=== PATIENT | female | born 1960 | race Hispanic/Latino ===

== ENCOUNTER 2017-11-06 18:38 | Emergency (ER) | payer OTHER ==
[~2017-11-06] VITALS: Ht 154.9 cm; Wt 74.8 kg
[2017-11-06] MEDS ORDERED: SODIUM CHLORIDE 0.9% 1000ML 1,000 ML IV STA (19:10)
[2017-11-06 19:42] LABS: BASOPHILS # (AUTO) 0.1 (0.0-0.1); BASOPHILS % 0.6 % (0.0-1.0); EOSINOPHILS # (AUTO) 0.1 (0.0-0.4); EOSINOPHILS % 0.8 % (0.0-6.0); HEMATOCRIT 42.8 % (34.2-44.1); HEMOGLOBIN 14.5 g/dL (12.0-16.0); LYMPHOCYTES # (AUTO) 7.3 (1.0-3.2); LYMPHOCYTES % 46.3 % (18.0-39.1); MEAN CORPUSCULAR HEMOGLOBIN 30.5 pg (28-32); MEAN CORPUSCULAR HGB CONC 33.9 g/dL (31-35); MEAN CORPUSCULAR VOLUME 90.1 fL (81-99); MONOCYTES # (AUTO) 1.1 (0.2-0.8); MONOCYTES % 6.6 % (4.4-11.3); NEUTROPHILS # (AUTO) 7.2 (2.1-6.9); NEUTROPHILS % 45.4 % (38.7-80.0); PLATELET COUNT 332 x10e3/uL (140-360); RED BLOOD COUNT 4.75 x10e6/uL (3.6-5.1); RED CELL DISTRIBUTION WIDTH 12.8 % (11.7-14.4)
[2017-11-06] MEDS ORDERED: GLIPIZIDE-METF1 EAC2 PO (19:42)
[2017-11-06] MEDS ORDERED: LISINOPRIL2.5 MG PO (19:43)
[2017-11-06] MEDS ORDERED: VITAMIN D1000 UNI1 PO (19:45)
[2017-11-06 19:51] LABS: INR 1.09; PARTIAL THROMBOPLASTIN TIME 27.4 seconds (23.8-35.5); PROTHROMBIN TIME 13.3 seconds (11.9-14.5)
[2017-11-06 19:55] LABS: BILIRUBIN,URINE 2+ (NEGATIVE); CLARITY,URINE SL CLOUDY (CLEAR); COLOR,URINE RED (YELLOW); KETONES,URINE NEGATIVE (NEGATIVE); LEUKOCYTE ESTERASE ,URINE TRACE (NEGATIVE); NITRITE,URINE NEGATIVE (NEGATIVE); PROTEIN,URINE DIPSTICK 1+ (NEGATIVE); URINE UROBILINOGEN 0.2 mg/dL (0.2 - 1)
[2017-11-06 20:00] LABS: ALANINE AMINOTRANSFERASE 67 IU/L (0-55); ALBUMIN 4.5 g/dL (3.5-5.0); ALBUMIN/GLOBULIN RATIO 1.2 (0.8-2.0); ALKALINE PHOSPHATASE 128 IU/L (40-150); ANION GAP 17.7 mmol/L (8-16); BLOOD UREA NITROGEN 12 mg/dL (7-26); BUN/CREATININE RATIO 14 (6-25); CALCIUM 10.1 mg/dL (8.4-10.2); CARBON DIOXIDE 22 mmol/L (22-29); CHLORIDE 105 mmol/L (98-107); CREATININE, SERUM 0.86 mg/dL (0.57-1.11); EST GLOMERULAR FILTRATION RATE > 60 ML/MIN (60-); GLUCOSE 172 mg/dL (74-118); POTASSIUM 3.7 mmol/L (3.5-5.1); SODIUM 141 mmol/L (136-145)
[2017-11-06 20:07] LABS: BACTERIA,URINE FEW /HPF; RBC,URINE >50 /HPF (0-5)
[2017-11-06 20:37] LABS: LYMPHOCYTES % (MANUAL) 38 % (19-48); MONOCYTES % (MANUAL) 6 % (3.4-9.0); NEUTROPHILS % (MANUAL) 52 % (40-74); PLATELET ESTIMATE ADEQUATE; PLATELET MORPHOLOGY COMMENT NORMAL; RBC MORPHOLOGY COMMENT NORMAL
[2017-11-06] MEDS ORDERED: SODIUM CHLORIDE 0.9% 1000ML 1,000 ML IV SCH (21:15)
--- NOTE | 2017-11-06 21:18 | Diagnostic Imaging Report ---
EXAM: Transvaginal ultrasound INDICATION: Abnormal vaginal bleeding. H/O of LEAP procedure 06/2017 with subsequent cauterization COMPARISON: None TECHNIQUE: Transverse and sagittal transvaginal barrera-scale and color doppler sonographic images of the pelvis were obtained. Transvaginal imaging was medically necessary to better evaluate the endometrium. CLINICAL HISTORY: 56 year old A0 Last menstrual period: 2011 FINDINGS: UTERUS: 5.9 x 3.6 x 4.9 cm, anteverted Heterogeneous external cervix with focal area of active bleeding. Hyperechoic fluid within the endocervical canal. Nonspecific 1.1 cm hyperechoic area in the posterior uterine body, possibly a partially calcified fibroid. ENDOMETRIUM: 0.2 cm Homogeneous echotexture without focal thickening. RIGHT OVARY: 2.5 x 1.7 x 1.5 cm, Normal color flow. No abnormal right ovarian cyst or mass. LEFT OVARY: 2.2 x 1.7 x 1.5 cm, Normal color flow. No abnormal left ovarian cyst or mass. No adnexal masses. No free fluid in the cul-de-sac. IMPRESSION: Heterogeneous cervix with focal area of active bleeding arising from the external cervix with blood seen in the endocervical canal. Direct visual inspection is recommended. Nonspecific 1.1 cm hyperechoic area in the posterior uterine body, possibly partially calcified fibroid. Otherwise, normal appearance of the intrauterine endometrium and ovaries. Signed by: Dr. Bre Rapp M.D. on 11/06/2017 9:14 PM
--- NOTE | 2017-11-06 21:57 | Diagnostic Imaging Report ---
EXAM: CHEST SINGLE (PORTABLE), AP 1 view INDICATION: Shortness of breath, vaginal bleeding COMPARISON: None FINDINGS: LINES/TUBES: None LUNGS: No consolidations or edema. PLEURA: No effusions or pneumothorax. HEART AND MEDIASTINUM: Normal size and contour. BONES AND SOFT TISSUES: No acute findings. IMPRESSION: No acute thoracic abnormality. Signed by: Dr. Bre Rapp M.D. on 11/06/2017 9:53 PM
[2017-11-06] MEDS ORDERED: SODIUM CHLORIDE 0.9% 1000ML 1,000 ML IV ONE (22:17)
[2017-11-06 23:25] VITALS: BP 127/79
== END 2017-11-06 23:34 | disposition other institution (70) ==
LOC: ER 18:38
DX: N93.9 Abnormal uterine and vaginal bleeding, unspecified (principal); R00.0 Tachycardia, unspecified; I10 Essential (primary) hypertension; E11.9 Type 2 diabetes mellitus without complications; K76.0 Fatty (change of) liver, not elsewhere classified
CPT/HCPCS: 36415; 71045; 76830; 80053; 81001; 84702; 85025; 85610; 85730; 86850; 86900; 99285; J7030; 93005